=== PATIENT | male | born 1935 ===

== ENCOUNTER 2021-10-07 08:47 | Inpatient (IN) ==
[2021-10-07] MEDS ORDERED: Albuterol HFA INHALER 8 gm MDI INH PRN (19:05)
[2021-10-07] MEDS: Nystatin TOP POWDER 15 GM BTL TOPICAL SCH (22:34)
[2021-10-08 05:56] LABS: Hematocrit 30 % (42-52); Hemoglobin 10.1 g/dL (14.0-18.0); Mean Corpuscular HGB Conc 34 g/dL (31-36); Mean Corpuscular Hemoglobin 35 pg (27-31); Mean Corpuscular Volume 103 fL (80-94); Mean Platelet Volume 10.3 fL (7.4-10.4); Platelet Count 98 10^3/uL (150-450); Red Blood Count 2.91 10^6 /uL (4.18-5.48); Red Cell Distribution Width 14 % (10-15); White Blood Count 3.9 10^3/uL (3.5-10.8)
[2021-10-08 06:02] LABS: ABS Eosinophils 0.1 10^3/ul (0-0.6); ABS Lymphocytes 1.1 10^3/ul (1.0-4.8); ABS Monocytes 0.6 10^3/ul (0-0.8); Eosinophil % 2.1 %; Lymphocyte % 29.1 %
[2021-10-08 06:13] LABS: Albumin 2.9 g/dL (3.2-5.2); Albumin/Globulin Ratio 0.9 (1-3); Calcium 8.6 mg/dL (8.6-10.3); Globulin 3.1 g/dL (2-4); Potassium 4.3 mmol/L (3.5-5.0); Total Bilirubin 0.7 mg/dL (0.2-1.0); eGFR CKD-EPI 69.2 (>60)
[2021-10-08] MEDS: Tiotropium Brom/Olodaterol MDI INH SCH (09:15)
[2021-10-08] MEDS: Mometasone 220 MCG MDI INH SCH (09:15)
[2021-10-08] MEDS: Fluticasone NASAL SPRAY 50MCG 16 gm SPRAY BTL BOTH NARES SCH (11:07)
[2021-10-08] MEDS: Nystatin TOP POWDER 15 GM BTL TOPICAL SCH ×2 (11:07→19:05)
[2021-10-09] MEDS: Fluticasone NASAL SPRAY 50MCG 16 gm SPRAY BTL BOTH NARES SCH (08:37)
[2021-10-09] MEDS: Nystatin TOP POWDER 15 GM BTL TOPICAL SCH ×2 (12:30→20:34)
[2021-10-09] MEDS: Tiotropium Brom/Olodaterol MDI INH SCH (12:32)
[2021-10-09] MEDS: Mometasone 220 MCG MDI INH SCH (12:32)
[2021-10-10] MEDS: Mometasone 220 MCG MDI INH SCH (08:36)
[2021-10-10] MEDS: Fluticasone NASAL SPRAY 50MCG 16 gm SPRAY BTL BOTH NARES SCH (08:36)
[2021-10-10] MEDS: Tiotropium Brom/Olodaterol MDI INH SCH (08:37)
[2021-10-10] MEDS: Nystatin TOP POWDER 15 GM BTL TOPICAL SCH ×2 (08:37→21:58)
[2021-10-10] MEDS: Dextran 70/Hypromellose Tears Eye Drops 15 ml BTL (for Artificials Tears) BOTH EYES PRN (22:14)
[2021-10-11] MEDS: Tiotropium Brom/Olodaterol MDI INH SCH (10:32)
[2021-10-11] MEDS: Mometasone 220 MCG MDI INH SCH (10:33)
[2021-10-11] MEDS: Fluticasone NASAL SPRAY 50MCG 16 gm SPRAY BTL BOTH NARES SCH (11:10)
[2021-10-11] MEDS: Nystatin TOP POWDER 15 GM BTL TOPICAL SCH ×2 (11:11→21:16)
[2021-10-12] MEDS: Fluticasone NASAL SPRAY 50MCG 16 gm SPRAY BTL BOTH NARES SCH (10:24)
[2021-10-12] MEDS: Tiotropium Brom/Olodaterol MDI INH SCH (10:29)
[2021-10-12] MEDS: Mometasone 220 MCG MDI INH SCH (10:34)
[2021-10-12] MEDS: Nystatin TOP POWDER 15 GM BTL TOPICAL SCH ×2 (11:31→20:38)
[2021-10-12] MEDS: Dextran 70/Hypromellose Tears Eye Drops 15 ml BTL (for Artificials Tears) BOTH EYES PRN (12:06)
[2021-10-13] MEDS: Fluticasone NASAL SPRAY 50MCG 16 gm SPRAY BTL BOTH NARES SCH (09:27)
[2021-10-13] MEDS: Mometasone 220 MCG MDI INH SCH (09:27)
[2021-10-13] MEDS: Tiotropium Brom/Olodaterol MDI INH SCH (09:27)
[2021-10-13] MEDS: Nystatin TOP POWDER 15 GM BTL TOPICAL SCH ×2 (09:28→20:10)
[2021-10-14] MEDS: Nystatin TOP POWDER 15 GM BTL TOPICAL SCH ×2 (10:19→21:12)
[2021-10-14] MEDS: Tiotropium Brom/Olodaterol MDI INH SCH (10:19)
[2021-10-14] MEDS: Fluticasone NASAL SPRAY 50MCG 16 gm SPRAY BTL BOTH NARES SCH (10:19)
[2021-10-14] MEDS: Mometasone 220 MCG MDI INH SCH (11:14)
[2021-10-14] MEDS ORDERED: Calcium Carb (TUMS) 500 mg CHEW TAB PO PRN (20:31)
[2021-10-14] MEDS: Dextran 70/Hypromellose Tears Eye Drops 15 ml BTL (for Artificials Tears) BOTH EYES PRN (21:13)
[2021-10-14] MEDS: Senna TAB 8.6 mg TAB PO PRN (21:20)
[2021-10-15 07:45] LABS: Albumin 2.7 g/dL (3.2-5.2); Albumin/Globulin Ratio 0.9 (1-3); Calcium 8.2 mg/dL (8.6-10.3); Globulin 2.9 g/dL (2-4); Potassium 4.1 mmol/L (3.5-5.0); Total Bilirubin 0.4 mg/dL (0.2-1.0); Total Protein 5.6 g/dL (6.4-8.9); eGFR CKD-EPI 75.1 (>60)
[2021-10-15] MEDS: Tiotropium Brom/Olodaterol MDI INH SCH (07:47)
[2021-10-15] MEDS: Mometasone 220 MCG MDI INH SCH (07:47)
[2021-10-15 07:48] LABS: Hematocrit 26 % (42-52); Hemoglobin 8.8 g/dL (14.0-18.0); Mean Corpuscular HGB Conc 33 g/dL (31-36); Mean Corpuscular Hemoglobin 34 pg (27-31); Mean Corpuscular Volume 102 fL (80-94); Red Blood Count 2.59 10^6 /uL (4.18-5.48); Red Cell Distribution Width 13 % (10-15); White Blood Count 3.1 10^3/uL (3.5-10.8)
[2021-10-15 08:07] LABS: ABS Eosinophils 0.1 10^3/ul (0-0.6); ABS Lymphocytes 1.2 10^3/ul (1.0-4.8); ABS Monocytes 0.5 10^3/ul (0-0.8); ABS Neutrophils 1.3 10^3/ul (1.5-7.7); Eosinophil % 3.5 %; Lymphocyte % 39.2 %; Mean Platelet Volume 8.6 fL (7.4-10.4); Platelet Count 97 10^3/uL (150-450)
[2021-10-15] MEDS: Fluticasone NASAL SPRAY 50MCG 16 gm SPRAY BTL BOTH NARES SCH (08:15)
[2021-10-15] MEDS: Nystatin TOP POWDER 15 GM BTL TOPICAL SCH ×3 (08:17→20:11)
[2021-10-15] MEDS: Senna TAB 8.6 mg TAB PO PRN (20:10)
[2021-10-16 00:40] LABS: Urine Appearance Clear; Urine Bilirubin Negative (Negative); Urine Blood Negative (Negative); Urine Color Yellow; Urine Glucose Negative (Negative); Urine Ketones Negative (Negative); Urine Nitrite Negative (Negative); Urine Protein Negative (Negative); Urine Specific Gravity 1.008 (1.002-1.030); Urine Urobilinogen Negative (Negative)
[2021-10-16] MEDS: Mometasone 220 MCG MDI INH SCH (09:48)
[2021-10-16] MEDS: Fluticasone NASAL SPRAY 50MCG 16 gm SPRAY BTL BOTH NARES SCH (09:48)
[2021-10-16] MEDS: Nystatin TOP POWDER 15 GM BTL TOPICAL SCH ×2 (09:48→20:38)
[2021-10-16] MEDS: Tiotropium Brom/Olodaterol MDI INH SCH (09:49)
[2021-10-16] MEDS: Dextran 70/Hypromellose Tears Eye Drops 15 ml BTL (for Artificials Tears) BOTH EYES PRN (20:39)
[2021-10-17] MEDS: Fluticasone NASAL SPRAY 50MCG 16 gm SPRAY BTL BOTH NARES SCH (08:15)
[2021-10-17] MEDS: Tiotropium Brom/Olodaterol MDI INH SCH (08:15)
[2021-10-17] MEDS: Mometasone 220 MCG MDI INH SCH (08:15)
[2021-10-17] MEDS: Nystatin TOP POWDER 15 GM BTL TOPICAL SCH ×2 (08:15→21:00)
[2021-10-17] MEDS: Dextran 70/Hypromellose Tears Eye Drops 15 ml BTL (for Artificials Tears) BOTH EYES PRN (21:06)
[2021-10-18] MEDS: Fluticasone NASAL SPRAY 50MCG 16 gm SPRAY BTL BOTH NARES SCH (08:17)
[2021-10-18] MEDS: Tiotropium Brom/Olodaterol MDI INH SCH (08:18)
[2021-10-18] MEDS: Mometasone 220 MCG MDI INH SCH (08:19)
[2021-10-18] MEDS: Nystatin TOP POWDER 15 GM BTL TOPICAL SCH ×2 (10:55→21:03)
[2021-10-19] MEDS: Tiotropium Brom/Olodaterol MDI INH SCH (08:02)
[2021-10-19] MEDS: Mometasone 220 MCG MDI INH SCH (08:02)
[2021-10-19] MEDS: Fluticasone NASAL SPRAY 50MCG 16 gm SPRAY BTL BOTH NARES SCH (09:32)
[2021-10-19] MEDS: Nystatin TOP POWDER 15 GM BTL TOPICAL SCH ×2 (09:40→23:48)
[2021-10-20] MEDS: Tiotropium Brom/Olodaterol MDI INH SCH (08:31)
[2021-10-20] MEDS: Fluticasone NASAL SPRAY 50MCG 16 gm SPRAY BTL BOTH NARES SCH (08:31)
[2021-10-20] MEDS: Mometasone 220 MCG MDI INH SCH (08:35)
[2021-10-20] MEDS: Nystatin TOP POWDER 15 GM BTL TOPICAL SCH ×2 (11:50→22:14)
[2021-10-20] MEDS: Dextran 70/Hypromellose Tears Eye Drops 15 ml BTL (for Artificials Tears) BOTH EYES PRN (22:14)
[2021-10-21] MEDS: Fluticasone NASAL SPRAY 50MCG 16 gm SPRAY BTL BOTH NARES SCH (09:35)
[2021-10-21] MEDS: Nystatin TOP POWDER 15 GM BTL TOPICAL SCH ×2 (09:37→20:11)
[2021-10-21] MEDS: Mometasone 220 MCG MDI INH SCH (09:37)
[2021-10-21] MEDS: Tiotropium Brom/Olodaterol MDI INH SCH (09:37)
[2021-10-21] MEDS: Senna TAB 8.6 mg TAB PO PRN (20:07)
[2021-10-22 06:34] LABS: ABS Eosinophils 0.1 10^3/ul (0-0.6); ABS Lymphocytes 1.7 10^3/ul (1.0-4.8); ABS Monocytes 0.5 10^3/ul (0-0.8); ABS Neutrophils 1.2 10^3/ul (1.5-7.7); Eosinophil % 3.8 %; Hematocrit 30 % (42-52); Hemoglobin 10.1 g/dL (14.0-18.0); Lymphocyte % 48.1 %; Mean Corpuscular HGB Conc 34 g/dL (31-36); Mean Corpuscular Hemoglobin 34 pg (27-31); Mean Corpuscular Volume 100 fL (80-94); Mean Platelet Volume 8.1 fL (7.4-10.4); Platelet Count 183 10^3/uL (150-450); Red Blood Count 2.99 10^6 /uL (4.18-5.48); Red Cell Distribution Width 13 % (10-15); White Blood Count 3.5 10^3/uL (3.5-10.8)
[2021-10-22 06:53] LABS: Albumin/Globulin Ratio 0.9 (1-3); Calcium 8.8 mg/dL (8.6-10.3); Globulin 3.2 g/dL (2-4); Potassium 4.5 mmol/L (3.5-5.0); Total Bilirubin 0.6 mg/dL (0.2-1.0); Total Protein 6.2 g/dL (6.4-8.9); eGFR CKD-EPI 65.5 (>60)
[2021-10-22] MEDS: Fluticasone NASAL SPRAY 50MCG 16 gm SPRAY BTL BOTH NARES SCH (10:31)
[2021-10-22] MEDS: Mometasone 220 MCG MDI INH SCH (10:31)
[2021-10-22] MEDS: Nystatin TOP POWDER 15 GM BTL TOPICAL SCH ×2 (10:33→20:37)
[2021-10-22] MEDS: Tiotropium Brom/Olodaterol MDI INH SCH (10:34)
[2021-10-22] MEDS: Dextran 70/Hypromellose Tears Eye Drops 15 ml BTL (for Artificials Tears) BOTH EYES PRN (13:13)
[2021-10-23 05:15] VITALS: BP 117/67
[2021-10-23] MEDS: Fluticasone NASAL SPRAY 50MCG 16 gm SPRAY BTL BOTH NARES SCH (09:06)
[2021-10-23] MEDS: Mometasone 220 MCG MDI INH SCH (09:06)
[2021-10-23] MEDS: Nystatin TOP POWDER 15 GM BTL TOPICAL SCH (09:07)
[2021-10-23] MEDS: Tiotropium Brom/Olodaterol MDI INH SCH (09:07)
== END 2021-10-23 10:37 | DRG 58 ==
LOC: PMRU 13:00
PROVIDERS: ADMIT Physical Medicine & Rehabilitation; ATTEND Physical Medicine & Rehabilitation